=== PATIENT | female | born 1945 | race African-American/Black ===

== ENCOUNTER 2019-02-14 11:13 | Inpatient (IN) | payer MEDICARE, OTHER ==
[~2019-02-14] VITALS: Ht 172.7 cm; Wt 89.8 kg
[~2019-02-14 11:13] MED LIST: AMLO10TA80 PO; ASPI-1158 PO; CARV12.545 PO; CHOL50006 PO; HYDR-2510 PO; INSU10VI5 SQ; METF-416 PO; NOVOLOG; SIMV20TA6 PO
[2019-02-14] MEDS ORDERED: ONDANSETRON HCL 4MG/2ML INJ IV STA (12:54)
[2019-02-14 13:33] LABS: BASOPHILS % 1.2 % (0.0-2.0); EOSINOPHILS % 2.2 % (0.0-5.0); HEMATOCRIT. 35.6 % (36.0-48.0); HEMOGLOBIN. 11.7 g/dL (12.0-16.0); LYMPHOCYTES % 18.7 % (20.0-50.0); MEAN CORPUSCULAR HEMOGLOBIN 29.1 pg (28.0-32.0); MEAN CORPUSCULAR VOLUME 88.6 fL (81.0-99.0); MONOCYTES % 6.6 % (2.0-8.0); NEUTROPHILS % 71.3 % (40.0-76.0); PLATELET 265 x1000/uL (130-400); RED BLOOD CELL COUNT 4.02 mill/uL (4.2-5.4); RED CELL DISTRIBUTION WIDTH 16.2 % (11.6-14.6)
[2019-02-14 13:41] LABS: CHLORIDE 105 mEq/L (98-107)
[2019-02-14] MEDS ORDERED: HYDRALAZINE HCL 100MG TABLET PO ONE (14:15)
[2019-02-14] MEDS ORDERED: ACETAMINOPHEN 325MG TABLET PO PRN (18:15)
[2019-02-14] MEDS ORDERED: MORPHINE SULFATE 2 MG/ML CPJ (NOT FOR IM USE) IV PRN (18:15)
[2019-02-14] MEDS ORDERED: MAGNESIUM/ALUMINUM HYDROXIDE/SIMETHICONE 30ML UDC PO PRN (18:15)
[2019-02-14] MEDS ORDERED: CLONIDINE 0.1MG TABLET PO PRN (18:15)
[2019-02-14] MEDS ORDERED: DOCUSATE SODIUM 100MG CAPSULE PO PRN (18:15)
[2019-02-14] MEDS ORDERED: GUAIFENESIN 200MG/10ML SUGAR FREE UDC PO PRN (18:15)
[2019-02-14] MEDS ORDERED: ENOXAPARIN 40MG/0.4ML SYR SUBCUT SCH (18:15)
[2019-02-14] MEDS ORDERED: DIPHENHYDRAMINE 50MG/ML VIAL IV PRN (18:15)
[2019-02-14 21:00] VITALS: BP 117/48
[2019-02-14 21:30] VITALS: BP 161/117
[2019-02-14] MEDS: HYDROCODONE/ACETAMINOPHEN 5/325MG TABLET PO PRN (23:45)
[2019-02-15] VITALS (7 sets, daily range): BP systolic 113–166; BP diastolic 57–124
[2019-02-15 08:28] LABS: BASOPHILS % 0.7 % (0.0-2.0); EOSINOPHILS % 3.9 % (0.0-5.0); HEMATOCRIT. 32.1 % (36.0-48.0); HEMOGLOBIN. 10.6 g/dL (12.0-16.0); LYMPHOCYTES % 22.2 % (20.0-50.0); MEAN CORPUSCULAR HEMOGLOBIN 28.9 pg (28.0-32.0); MEAN CORPUSCULAR VOLUME 87.8 fL (81.0-99.0); MEAN PLATELET VOLUME 8.1 fl (7.4-10.4); MONOCYTES % 13.5 % (2.0-8.0); NEUTROPHILS % 59.7 % (40.0-76.0); PLATELET 200 x1000/uL (130-400); RED BLOOD CELL COUNT 3.66 mill/uL (4.2-5.4)
[2019-02-15 08:56] LABS: CHLORIDE 104 mEq/L (98-107)
[2019-02-15] MEDS ORDERED: ENOXAPARIN 40MG/0.4ML SYR SUBCUT SCH (09:00)
[2019-02-15] MEDS: AMLODIPINE 10MG TABLET PO SCH (09:08)
[2019-02-15] MEDS ORDERED: DEXTROSE 50% WATER 50ML SYRINGE IV PRN (10:30)
[2019-02-15] MEDS: HYDROCODONE/ACETAMINOPHEN 5/325MG TABLET PO PRN (12:32)
[2019-02-15] MEDS: CARVEDILOL 12.5MG TABLET PO SCH ×2 (12:32→20:38)
[2019-02-15] MEDS: ASPIRIN 81MG EC TABLET PO SCH (12:33)
[2019-02-15] MEDS: INSULIN LISPRO 100 UNITS/ML SUBCUT SCH ×3 (12:35→20:43)
[2019-02-15] MEDS: BLOOD SUGAR DIAGNOSTIC STRIP TEST SCH ×3 (12:37→20:38)
[2019-02-15] MEDS: HYDROCHLOROTHIAZIDE 25MG TABLET PO SCH (12:38)
[2019-02-15] MEDS: ONDANSETRON HCL 4MG/2ML INJ IV PRN (14:25)
[2019-02-15] MEDS ORDERED: ATORVASTATIN CALCIUM 20MG TABLET PO SCH (21:00)
[2019-02-16 00:05] VITALS: BP 118/56
[2019-02-16 04:00] VITALS: BP 136/49
[2019-02-16] MEDS: HYDROCODONE/ACETAMINOPHEN 5/325MG TABLET PO PRN (05:18)
[2019-02-16] MEDS: ONDANSETRON HCL 4MG/2ML INJ IV PRN (05:18)
[2019-02-16] MEDS: BLOOD SUGAR DIAGNOSTIC STRIP TEST SCH (05:24)
[2019-02-16 08:00] VITALS: BP 154/77
[2019-02-16] MEDS: INSULIN LISPRO 100 UNITS/ML SUBCUT SCH (08:26)
[2019-02-16 08:51] VITALS: BP 154/77
[2019-02-16] MEDS: ASPIRIN 81MG EC TABLET PO SCH (09:00)
[2019-02-16] MEDS ORDERED: ENOXAPARIN 30MG/0.3ML SYR SUBCUT SCH (09:00)
[2019-02-16] MEDS: AMLODIPINE 10MG TABLET PO SCH (09:00)
[2019-02-16] MEDS: HYDROCHLOROTHIAZIDE 25MG TABLET PO SCH (09:00)
[2019-02-16] MEDS: CARVEDILOL 12.5MG TABLET PO SCH (09:00)
== END 2019-02-16 10:14 | disposition home or self-care (01) | DRG 304 ==
LOC: ER 11:13 → 7WST 17:13 → EDBEDREQ 17:16 → EDBEDREQTM 17:16 → ENRESERV 20:00
PROVIDERS: ADMIT Hospitalist; ATTEND Hospitalist
PROC: 5A1D70Z Performance of Urinary Filtration, Intermittent, Less than 6 Hours Per Day (ICD-10-PCS; principal; 2019-02-14)
DX: I16.1 Hypertensive emergency (principal); N18.6 End stage renal disease; R10.9 Unspecified abdominal pain; I12.0 Hypertensive chronic kidney disease with stage 5 chronic kidney disease or end stage renal disease; D64.9 Anemia, unspecified; E11.22 Type 2 diabetes mellitus with diabetic chronic kidney disease; E78.5 Hyperlipidemia, unspecified; Z99.2 Dependence on renal dialysis; Z82.49 Family history of ischemic heart disease and other diseases of the circulatory system; Z79.899 Other long term (current) drug therapy; Z79.82 Long term (current) use of aspirin; Z79.4 Long term (current) use of insulin; Z91.81 History of falling
CPT/HCPCS: 36415; 71045; 80053; 82962; 85025; 93005; 93306; 93970; 96374; 99291; J1650; J1815; J2270; J2405

== ENCOUNTER 2019-05-25 08:10 | Emergency (ER) | payer MEDICARE, OTHER ==
[~2019-05-25] VITALS: Ht 172.7 cm; Wt 108.8 kg
[~2019-05-25 08:10] MED LIST changes: -NOVOLOG; +SIMV-43 PO; -SIMV20TA6 PO
[2019-05-25] MEDS ORDERED: MORPHINE SULFATE 4 MG/ML CPJ (NOT FOR IM USE) IV STA (08:57)
[2019-05-25] MEDS ORDERED: PIPERACILLIN/TAZ 3.375G PREMIX 50 ML IV ONE (09:00)
[2019-05-25] MEDS ORDERED: VANCOMYCIN 1 G PREMIX 200 ML IV ONE (09:00)
[2019-05-25 09:17] LABS: HEMATOCRIT. 37.5 % (36.0-48.0); HEMOGLOBIN. 12.7 g/dL (12.0-16.0); MEAN CORPUSCULAR HEMOGLOBIN 29.7 pg (28.0-32.0); MEAN CORPUSCULAR VOLUME 87.9 fL (81.0-99.0); MEAN PLATELET VOLUME 7.2 fl (7.4-10.4); PLATELET 360 x1000/uL (130-400); RED BLOOD CELL COUNT 4.27 mill/uL (4.2-5.4); RED CELL DISTRIBUTION WIDTH 15.9 % (11.6-14.6)
[2019-05-25 09:24] LABS: CHLORIDE 92 mEq/L (98-107)
[2019-05-25 09:25] LABS: PROTHROMBIN TIME 11.1 sec (9.6-11.0)
[2019-05-25 09:37] LABS: PLATELET ESTIMATE NORMAL
[2019-05-25 14:48] VITALS: BP 158/54
[2019-05-25] MEDS ORDERED: HYDRALAZINE 20MG/ML VIAL IV ONE (16:30)
== END 2019-05-25 18:53 | disposition short-term general hospital (02) ==
LOC: ER 08:10 → EDBD 08:10 → ER 18:53
DX: L03.011 Cellulitis of right finger (principal); R11.0 Nausea; I11.0 Hypertensive heart disease with heart failure; I50.9 Heart failure, unspecified; E11.9 Type 2 diabetes mellitus without complications; E78.00 Pure hypercholesterolemia, unspecified; Z79.899 Other long term (current) drug therapy; Z79.4 Long term (current) use of insulin; Z98.890 Other specified postprocedural states
CPT/HCPCS: 36415; 71045; 73130; 74176; 80053; 82962; 83605; 83880; 84145; 84484; 85025; 85610; 87040; 93005; 96365; 96368; 96375; 99285; J0360; J2270; J2543; J3370